=== PATIENT | female | born 1990 | race Caucasian/White ===

== ENCOUNTER 2017-04-06 09:43 | Emergency (ER) | payer OTHER ==
--- NOTE | ~2017-04-06 | CT114 ---
[facility] A Service of [facility] RADIOLOGY TEXT RESULTS PATIENT: SNEHA JENKINS LOCATION: [facility] : 88 UNIT #: [id number] AGE: [address]: Herminio Meléndez SEX: F ORDER DR: [id number] [facility] [address] [place], [place] [address] [id number] E MR#: [id number] #: [id number] NAME: SNEHA JENKINS : 1990 SEX: F STUDY DATE/TIME: 04/06/2017 10:38 UNIT: TX ROOM: STUDY DESCRIPTION: CT Soft Tissue Neck W Cont Attending Physician: Herminio Meléndez Ordering Physician: Herminio Meléndez Primary Care Physician: Praneeth Bauer M.D. MEDICAL IMAGING REPORT This report is preliminary unless electronic signature is present EXAM CT soft tissue neck with contrast DATE 04/06/2017 HISTORY Throat swelling since this a.m. History of asthma. Tympanoplasty x3 year x4-5 tubal "maria t". TECHNIQUE CT neck performed with intravenous administration of 75 mL Isovue-370. This CT exam was performed with one or more of the following radiation dose reduction techniques: automatic exposure control, adjustment of mA and/or kV according to patient size, and iterative reconstruction. COMPARISON No prior dedicated CT of the neck. Comparison made to images from CT cervical spine dated 10/16/2013. FINDINGS The visualized portions of brain are normal. Intraorbital soft tissues unremarkable. The visualized paranasal sinuses and mastoid air cells show mucosal thickening in the inferior left maxillary sinus. No evidence of acute sinusitis in the paranasal sinuses. Opacification of a few right mastoid air cells. Correlate with any clinical signs or symptoms of mastoiditis. No fracture. No acute appearing bony abnormality. Straightening of the normal cervical lordosis unchanged from prior CT cervical spine. Narrowing of the C4-C5, C5-C6 intervertebral disc spaces unchanged. No significant spinal canal narrowing. The neural foramina appear patent without evidence of exiting nerve impingement. The nasopharyngeal soft tissues are unremarkable. Abnormal rounded area [facility] A Service of [facility] RADIOLOGY TEXT RESULTS PATIENT: SNEHA JENKINS LOCATION: [facility] : [birth year] UNIT #: [id number] AGE: [address]: Herminio Meléndez SEX: F ORDER DR: of mixed density in the right palatine tonsil measuring 1.9 cm x 2.3 cm x approximately 2.9 cm. It contains some subtle areas of enhancement and some areas of relative hypodensity along its more inferior aspect. There is associated mass effect with some narrowing of the oral pharyngeal airway at this level and some uvular deviation to the left. The appearance, in light of the patient's young age and reported onset of symptoms, most likely represents a right palatine tonsillar phlegmon or developing abscess. Neoplastic mass lesion felt unlikely though not strictly excluded. Correlate with direct visualization. Short-interval follow up after treatment for presumed abscess recommended. Remainder of oral pharyngeal soft tissues show no definite acute abnormality. The base of tongue is unremarkable. The retropharyngeal space unremarkable. Larynx, subglottic airway, superior mediastinum show no acute abnormalities. The lung apices are clear. 6 mm hypodense nodule posterior mid left thyroid lobe best further evaluated with ultrasound. Not clearly seen on prior noncontrast enhanced study. Thyroid, otherwise, unremarkable. Submandibular and parotid glands unremarkable. Mildly prominent right jugulodigastric lymph node measuring about 1.2 cm in short axis and likely reactive in nature and related to the presumed right palatine tonsillar phlegmon/abscess. Attention at followup recommended. The vascular structures are notable for aberrant right subclavian artery passing posterior to the trachea and esophagus. Normal variant. Correlate with any clinical symptoms of dysphagia. IMPRESSION 1. Findings most in keeping with right palatine tonsillar phlegmon/early abscess. Within the right palatine tonsil, there is a area of heterogeneous mixed density with some areas of enhancement and some areas of relative hypodensity measuring about 1.9 cm x 2.7 cm x 2.9 cm. Localized mass effect with some mild mass effect on the uvula, shifting it to the left. Mild narrowing of the oral pharyngeal airway at this level. There is no indication of critical airway narrowing. Differential diagnosis could include palatine tonsillar neoplasm; however, this is felt less likely given the patient's young age and reported rapid onset of symptoms. Correlation with direct visualization recommended. Followup after treatment for presumed right palatine tonsillar abscess strongly recommended to confirm resolution of abnormality. 2. Mildly enlarged lymph node in the right jugulodigastric chain felt to be reactive in nature and related to the presumed right palatine tonsillar phlegmon/abscess. 3. Opacification of a few right mastoid air cells. Correlate with any clinical signs or symptoms of right mastoiditis. 4. Aberrant right subclavian artery. Normal variant. It passes posterior to the trachea and esophagus. Correlate with any clinical signs or symptoms of dysphagia. 5. 6 mm hypodense nodule posterior mid left thyroid lobe. Nonspecific appearance. Best further evaluated with elective thyroid ultrasound. 6. See remainder of incidental findings in body of report above. [facility] A Service of [facility] RADIOLOGY TEXT RESULTS PATIENT: SNEHA JENKINS LOCATION: [facility] : [birth year] UNIT #: [id number] AGE: [address]: Herminio Meléndez SEX: F ORDER DR: Dictated by... Devendra Patterson M.D. THIS IS AN ELECTRONICALLY VERIFIED REPORT Devendra Patterson M.D. at 04/06/2017 7:48 PM DEBO/kaya TD: 04/06/2017 14:28 JOB #: [id number] MEDICAL IMAGING REPORT Page 1 of 1 COPY
[~2017-04-06 09:43] MED LIST: ACID CONTROL20 MG PO; AMOXICILLIN500 M1 PO; AMOXICILLIN875 MG PO; AZITHROMYCIN250 MG PO; BACTRIM DS TABL1 TA1 PO; BENTYL20 MG PO; FIORICET1 TAB PO; FLEXERIL10 MG PO; MOTRIN600 M1 PO; NAPROSYN500 MG PO; NO MEDICATIONS; PHENERGAN12.5 MG/SU RC; PHENERGAN25 M1 PO; PHENERGAN25 MG PO; PRENATAL1 TA1 PO; TRAMADOL HCL50 M2 PO; TYLENOL #3 PO; VOLTAREN50 MG PO; VOLTAREN75 MG PO; ZANAFLEX4 M1 PO; ZYRTEC10 M1
[2017-04-06 13:51] LABS: POC - CREATININE 0.68 mg/dL (0.44-1.03); POC - GFR >60.0 mL/min (>60)
== END 2017-04-06 13:40 | disposition short-term general hospital (02) ==
LOC: CFTX 09:43 → CED 09:43 → CFTX 11:28 → CED 11:28 → CFTX 13:40
PROVIDERS: Nurse Practitioner
DX: J36 Peritonsillar abscess (principal); J45.909 Unspecified asthma, uncomplicated; F41.9 Anxiety disorder, unspecified; F17.210 Nicotine dependence, cigarettes, uncomplicated; Z88.8 Allergy status to other drugs, medicaments and biological substances
CPT/HCPCS: 70491; 82565; 87651; 96365; 96375; 99285; J1100; J1885; Q9967

== ENCOUNTER 2017-07-07 19:21 | Emergency (ER) | payer OTHER ==
[~2017-07-07] VITALS: Ht 172.7 cm; Wt 104.3 kg
== END 2017-07-07 22:26 | disposition home or self-care (01) ==
LOC: CED 19:21
DX: J02.0 Streptococcal pharyngitis (principal); J45.909 Unspecified asthma, uncomplicated; F41.9 Anxiety disorder, unspecified; F17.200 Nicotine dependence, unspecified, uncomplicated; Z88.8 Allergy status to other drugs, medicaments and biological substances
CPT/HCPCS: 87880; 96372; 99283; J0561; J1100